=== PATIENT | male | born 1985 ===

== ENCOUNTER 2022-06-29 18:35 | Emergency (ER) | payer SELFPAY ==
[~2022-06-29] VITALS: Ht 185.4 cm; Wt 115.9 kg
[2022-06-29 18:48] VITALS: BP 153/90
[2022-06-29] MEDS ORDERED: OMEG-136 PO (18:49)
[2022-06-29] MEDS ORDERED: TUME1CAP PO (18:49)
== END 2022-06-29 20:05 | disposition home or self-care (01) ==
LOC: EMS 18:39
DX: G56.22 Lesion of ulnar nerve, left upper limb (principal); F10.20 Alcohol dependence, uncomplicated
CPT/HCPCS: 99281; Z7502